=== PATIENT | female | born 1980 | race Caucasian/White ===

== ENCOUNTER 2016-06-19 07:37 | Emergency (ER) | payer OTHER ==
[2016-06-19 07:42] VITALS: BP 126/75; PULSE 82; TEMP 98.5; BMI 23.6
--- NOTE | 2016-06-19 08:14 | PDOC ---
History of Present Illness - General Chief Complaint: Rash Stated Complaint: 9WKS/ALLERGIC REACTION Time Seen by Provider: 06/19/16 08:13 Past History - Past Medical History Allergies/Adverse Reactions: Allergies Allergy/AdvReac Type Severity Reaction Status Date / Time No Known Allergies Allergy Verified 06/19/16 07:40 Home Medications: Ambulatory Orders Cephalexin [Keflex] 500 mg PO BID #20 capsule 06/19/16 Ranitidine HCl [Zantac] 150 mg PO BID #8 tablet 06/19/16 - Psycho/Social/Smoking Cessation Hx Anxiety: No Suicidal Ideation: No Smoking History: Never smoked Have you smoked in the past 12 months: No Information on smoking cessation initiated: No Hx Alcohol Use: No Drug/Substance Use Hx: No Substance Use Type: None *Physical Exam - Vital Signs Last Vital Signs Temp Pulse Resp BP Pulse Ox 98.5 F 82 18 126/75 100 06/19/16 07:40 06/19/16 07:40 06/19/16 07:40 06/19/16 07:40 06/19/16 07:40 ED Treatment Course - LABORATORY CBC & Chemistry Diagram: 06/19/16 09:30 06/19/16 09:40 *DC/Admit/Observation/Transfer Diagnosis at time of Disposition: Rash and nonspecific skin eruption Qualifiers: Weeks of gestation: less than 8 weeks Qualified Code(s): Z3A.01 - Less than 8 weeks gestation of - Discharge Dispostion Disposition: HOME Condition at time of disposition: Stable - Prescriptions Prescriptions: Cephalexin [Keflex] 500 mg PO BID #20 capsule Ranitidine HCl [Zantac] 150 mg PO BID #8 tablet - Referrals Referrals: Candi Shin MD [Staff Physician] - Hitesh Hernandez [Primary Care Provider] - - Patient Instructions Printed Discharge Instructions: DI for Rash Additional Instructions: Please take medications as prescribed and follow-up with dermatology within the next 2 days. Please keep your appointment with your corporate travel expert on Wednesday. If you experience any fever, increased vomiting, diarrhea, chills, or worsening of the rash, or any new or concerning symptoms, please return to the ER. - Post Discharge Activity Work/School Note: Back to Work - Attestations Physician Attestion: 06/19/16 08:14 I, Dr. Shane Santoro, attest that this document has been prepared under my direction and personally reviewed by me in its entirety. I further attest, that it accurately reflects all work, treatment, procedures and medical decision -making performed by me.
[2016-06-19 08:25] LABS: URINE APPEARANCE CLOUDY; URINE BILIRUBIN NEGATIVE (NEGATIVE); URINE COLOR AMBER; URINE GLUCOSE (UA) NEGATIVE (NEGATIVE); URINE KETONE NEGATIVE (NEGATIVE); URINE NITRITE NEGATIVE (NEGATIVE); URINE UROBILINOGEN NEGATIVE E.U./dl (0.2-1.0)
[2016-06-19 08:43] LABS: URINE BLOOD 2+ (NEGATIVE); URINE LEUK ESTERASE 3+ (NEGATIVE); URINE PROTEIN 2+ (NEGATIVE)
[2016-06-19 08:49] LABS: URINE MUCUS MANY; URINE RBC 111 /hpf (0-3); URINE WBC 1037 /hpf (3-5)
[2016-06-19] MEDS ORDERED: CEPHALEXIN MONOHYDRATE 500 MG CAPSULE (UD) PO ONE (09:16)
[2016-06-19] MEDS ORDERED: RANITIDINE HCL 150 MG TABLET (FP) PO ONE (09:17)
[2016-06-19] MEDS ORDERED: SODIUM CHLORIDE 0.9% 1000 ML INFUS.BAG IV ONE (09:19)
[2016-06-19] MEDS ORDERED: CEPHALEXIN MONOHYDRATE 250 MG CAPSULE (FP) ONE (09:28)
[2016-06-19] MEDS ORDERED: RANITIDINE HCL 150 MG TABLET (FP) ONE (09:28)
--- NOTE | 2016-06-19 09:42 | PDOC ---
History of Present Illness - General Chief Complaint: Rash Stated Complaint: 9WKS/ALLERGIC REACTION Time Seen by Provider: 06/19/16 08:13 - History of Present Illness Initial Comments: 06/19/16 09:40 CHIEF COMPLAINT: rash HISTORY OF PRESENT ILLNESS: 36 yo F (LMP 04/27/16) presents to ED with generalized painful rash to body that started yesterday, accompanied by one episode of vomiting this morning. She also complains of burning and discomfort with urination. No recent travel or sick contacts. PAST MEDICAL HISTORY: Denies past medical history FAMILY HISTORY: Denies SOCIAL HISTORY: Denies tobacco, alcohol, illicit drug use. SURGICAL HISTORY: Denies ALLERGIES: No known drug allergies REVIEW OF SYSTEMS General/Constitutional: Denies fever or chills. Denies weakness, weight change. HEENT: Denies change in vision. Denies ear pain or discharge. Denies sore throat. Cardiovascular: Denies chest pain or shortness of breath. Respiratory: Denies cough, wheezing, or hemoptysis. Gastrointestinal: Denies nausea, vomiting, diarrhea or constipation. Denies rectal bleeding. Genitourinary: Dysuria, denies blood in urine. Musculoskeletal: Denies joint or muscle swelling or pain. Denies neck or back pain. Skin: Painful rash. Denies rash or easy bruising. PHYSICAL EXAM General Appearance: Well-appearing, appropriately dressed. No apparent distress , no intoxication. HEENT: EOMI, PERRLA, normal ENT inspection, normal voice, TMs normal, pharynx normal. No conjunctival pallor. No photophobia, scleral icterus. Respiratory/Chest: Lungs CTAB. Cardiovascular: RRR. S1, S2. Integumentary: Generalized painful macular erythematous rash to face, torso, b/ l groin, b/l UE and LE. Appropriate color, dry, warm. Neurologic: private duty lpn II-XII intact. Fully oriented, alert. Appropriate mood/affect. Motor strength 5/5. No appreciable EOM palsy, facial droop or sensory deficit. Past History - Past Medical History Allergies/Adverse Reactions: Allergies Allergy/AdvReac Type Severity Reaction Status Date / Time No Known Allergies Allergy Verified 06/19/16 07:40 Home Medications: Ambulatory Orders Cephalexin [Keflex] 500 mg PO BID #20 capsule 06/19/16 Ranitidine HCl [Zantac] 150 mg PO BID #8 tablet 06/19/16 - Psycho/Social/Smoking Cessation Hx Anxiety: No Suicidal Ideation: No Smoking History: Never smoked Have you smoked in the past 12 months: No Information on smoking cessation initiated: No Hx Alcohol Use: No Drug/Substance Use Hx: No Substance Use Type: None *Physical Exam - Vital Signs Last Vital Signs Temp Pulse Resp BP Pulse Ox 98.5 F 82 18 126/75 100 06/19/16 07:40 06/19/16 07:40 06/19/16 07:40 06/19/16 07:40 06/19/16 07:40 ED Treatment Course - LABORATORY CBC & Chemistry Diagram: 06/19/16 09:30 06/19/16 09:40 - ADDITIONAL ORDERS Additional order review: Laboratory Results 06/19/16 08:05 Urine Color Kaitlyn Urine Appearance Cloudy Urine pH 5.0 Ur Specific [place] 1.021 Urine Protein 2+ H Urine Glucose (UA) Negative Urine Ketones Negative Urine Blood 2+ H Urine Nitrite Negative Urine Bilirubin Negative Urine Urobilinogen Negative Ur Leukocyte Esterase 3+ H Urine RBC 111 Urine WBC 1037 Ur Epithelial Cells Moderate Urine Mucus Many Urine HCG, Qual Positive - Medications Given in the ED: ED Medications Discontinued Medications Generic Name Dose Route Start Last Admin Trade Name Freq PRN Reason Stop Dose Admin Cephalexin HCl 500 mg 06/19/16 09:16 06/19/16 09:40 Keflex - PO 06/19/16 09:17 500 mg ONCE ONE Administration Ranitidine HCl 300 mg 06/19/16 09:17 06/19/16 09:40 Zantac - PO 06/19/16 09:18 300 mg ONCE ONE Administration Sodium Chloride 1,000 ml 06/19/16 09:19 06/19/16 09:40 Normal Saline - IV 06/19/16 09:20 1,000 ml ONCE ONE Administration Medical Decision Making - Medical Decision Making 06/19/16 10:44 36 yo F (LMP 04/27/16) presents to ED with generalized painful rash to body that started yesterday, accompanied by one episode of vomiting this morning and dysuria. -CBC, CMP -UA, UCx, Upreg Labs: UA: WBC 1000+, +blood otherwise unremarkable -1L NS -Zantac -Keflex Advised patient to take medication as prescribed and follow up with ranch cook within the next 2 days and to keep appointment with OB for this following Wednesday. Advised patient of signs and symptoms for return to ER; patient verbalized understanding and agrees to plan. *DC/Admit/Observation/Transfer Diagnosis at time of Disposition: Rash and nonspecific skin eruption Qualifiers: Weeks of gestation: less than 8 weeks Qualified Code(s): Z3A.01 - Less than 8 weeks gestation of - Discharge Dispostion Disposition: HOME Condition at time of disposition: Stable Admit: No - Prescriptions Prescriptions: Cephalexin [Keflex] 500 mg PO BID #20 capsule Ranitidine HCl [Zantac] 150 mg PO BID #8 tablet - Referrals Referrals: Hitesh Hernandez [Primary Care Provider] - Candi Shin MD [Staff Physician] - - Patient Instructions Printed Discharge Instructions: DI for Rash Additional Instructions: Please take medications as prescribed and follow-up with dermatology within the next 2 days. Please keep your appointment with your synthetic soil blocks pulper on Wednesday. If you experience any fever, increased vomiting, diarrhea, chills, or worsening of the rash, or any new or concerning symptoms, please return to the ER. - Post Discharge Activity Work/School Note: Back to Work
[2016-06-19 10:17] LABS: BASOPHIL 0.4 % (0-2.0); EOSINOPHIL 0.1 % (0-4.5); MCH 29.3 pg (25.7-33.7); MCHC 32.7 g/dl (32.0-36.0); MEAN CELL VOLUME 89.6 fl (80-96); MEAN PLT VOLUME 9.4 fl (7.5-11.1); NEUTROPHILS 88.4 % (42.8-82.8); PLATELET COUNT 238 K/MM3 (134-434); RDW 13.4 % (11.6-15.6); WHITE BLOOD COUNT 11.8 K/mm3 (4.0-10.0)
[2016-06-19 10:29] LABS: ALBUMIN 3.8 g/dl (3.4-5.0); ALK PHOS 66 U/L (45-117); ANION GAP 10 (8-16); BILIRUBIN,TOTAL 0.4 mg/dL (0.2-1.0); CALCIUM 8.5 mg/dL (8.5-10.1); CO2 24 mmol/L (21-32); CREATININE 0.6 mg/dL (0.55-1.02); GLUCOSE,RANDOM 91 mg/dL (74-106); SGOT/AST 15 U/L (15-37); SGPT/ALT 16 U/L (12-78); TOT PROT 7.5 g/dl (6.4-8.2)
== END 2016-06-19 11:06 | disposition home or self-care (01) ==
LOC: JER 07:37
DX: O26.891 Other specified pregnancy related conditions, first trimester (principal); R21 Rash and other nonspecific skin eruption; Z3A.09 9 weeks gestation of pregnancy
CPT/HCPCS: 36415; 80053; 81003; 81015; 84703; 85025; 85651; 86850; 86900; 86901; 99282-25

== ENCOUNTER 2019-09-09 18:44 | Emergency (ER) | payer OTHER ==
--- NOTE | 2019-09-09 18:48 | PDOC ---
Rapid Medical Evaluation Time Seen by Provider: 09/09/19 18:47 Medical Evaluation: Allergies Allergy/AdvReac Type Severity Reaction Status Date / Time peanut Allergy Severe Difficulty Verified 11/12/16 20:39 Breathing 09/09/19 18:47 I have performed a brief in-person evaluation of this patient. The patient presents with a chief complaint of:and pain w/ n/v/d after po intake x 1 week. No pmhx Pertinent physical exam findings:well chandler and stable I have ordered the following:labs/ua The patient will proceed to the ED for further evaluation. Discharge Disposition - Diagnosis Abdominal pain Qualifiers: Abdominal location: unspecified location Qualified Code(s): R10.9 - Unspecified abdominal pain - Referrals - Patient Instructions - Post Discharge Activity
[2019-09-09 18:50] VITALS: TEMP 98.3; BMI 31.1
[2019-09-09] MEDS ORDERED: ACETAMINOPHEN 1000 MG/100 ML VIAL (NON FORMULARY) IVPB ONE (20:33)
[2019-09-09] MEDS ORDERED: FAMOTIDINE 20 MG/50 ML IVPB 20 MG/50 ML MG IVPB ONE ×2 (20:33→21:14)
[2019-09-09] MEDS ORDERED: LACTATED RINGERS SOLUTION 1000 ML INFUS.BAG IV ONE (20:34)
[2019-09-09] MEDS ORDERED: ONDANSETRON 4 MG/2 ML VIAL IVPUSH ONE (20:36)
--- NOTE | 2019-09-09 20:41 | PDOC ---
History of Present Illness - General Chief Complaint: Pain, Acute Stated Complaint: DIARREAH, VOMITTING, WEAKNESS Time Seen by Provider: 09/09/19 18:47 - History of Present Illness Initial Comments: 09/09/19 20:21 39 F with hx of alcohol use presented to the ED with abdominal pain. Her boy friend was the primary grey goods examiner. According to her, she has been drinking over the last week. 4 beers and a couple shots a day. Her abdominal pain and headaches started around last week, but it got so bad, she came to the ED. In addition, she had nausea, and vomiting NBNB, diarrhea , chill, epigastric pain. She denies fever, chest pain, unilat leg swelling/pain, dysuria PMHX: as in HPI PSHX: none Meds: none Allergies: none Tob: neg Etoh: heavy Rec drugs: neg PCP:Jose L Kaba MD Termite Treater: boyfriend ROS GENERAL/CONSTITUTIONAL: No fever. chills. No weakness. HEAD, EYES, EARS, NOSE AND THROAT: No change in vision. No ear pain or discharge. No sore throat. CARDIOVASCULAR: No chest pain or shortness of breath RESPIRATORY: No cough, wheezing, or hemoptysis. GASTROINTESTINAL: nausea, vomiting, diarrhea . No constipation. GENITOURINARY: No dysuria, frequency, or change in urination. MUSCULOSKELETAL: No joint or muscle swelling or pain. No neck or back pain. SKIN: No rash NEUROLOGIC: headache. no vertigo loss of consciousness, or change in strength/sensation. ENDOCRINE: No increased thirst. No abnormal weight change HEMATOLOGIC/LYMPHATIC: No anemia, easy bleeding, or history of blood clots. ALLERGIC/IMMUNOLOGIC: No hives or skin allergy. PE GENERAL: Awake, alert, and fully oriented, in no acute distress HEAD: No signs of trauma, normocephalic, atraumatic EYES: PERRLA, EOMI, sclera anicteric, conjunctiva clear ENT: Auricles normal inspection, hearing grossly normal, nares patent, oropharynx clear without exudates. Moist mucosa NECK: Normal ROM, supple, no lymphadenopathy, JVD, or masses LUNGS: No distress, speaks full sentences, clear to auscultation bilaterally HEART: Regular rate and rhythm, normal S1 and S2, no murmurs, rubs or gallops, peripheral pulses normal and equal bilaterally. ABDOMEN: Soft, nontender, normoactive bowel sounds. No guarding, no rebound. No masses. diffuse abdominal pain EXTREMITIES : Normal inspection, Normal range of motion, no edema. No clubbing or cyanosis. NEUROLOGICAL: Cranial nerves II through XII grossly intact. Normal speech, normal gait, no focal sensorimotor deficits SKIN: Warm, Dry, normal turgor, no rashes or lesions noted Past History - Medical History Allergies/Adverse Reactions: Allergies Allergy/AdvReac Type Severity Reaction Status Date / Time peanut Allergy Severe Difficulty Verified 09/09/19 18:48 Breathing Home Medications: Ambulatory Orders NK [No Known Home Medication] 09/09/19 COPD: No - Psycho-Social/Smoking History Smoking History: Never smoked Have you smoked in the past 12 months: No - Substance Abuse Hx (Audit-C & DAST Scrn) How often the patient has a drink containing alcohol: Never Score: In Men: 4 or > Positive; In Women: 3 or > Positive: 0 Screen Result (Pos requires Nsg. Audit-10AR): Negative In the last yr the pt used illegal drug/Rx for NonMed reason: No Score: Yes response is considered Positive: 0 Screen Result (Positive result requires Nsg. DAST-10): Negative *Physical Exam - Vital Signs Last Vital Signs Temp Pulse Resp BP Pulse Ox 98.3 F 99 H 18 155/89 98 09/09/19 18:48 09/09/19 18:48 09/09/19 18:48 09/09/19 18:48 09/09/19 18:48 ED Treatment Course - LABORATORY CBC & Chemistry Diagram: 09/09/19 20:30 09/09/19 20:17 Medical Decision Making - Medical Decision Making 09/09/19 20:51 Ms Soriano 39 F with hx of alcohol abuse came here for abdominal pain,N/V/D. Based on H&P, ddx: most likely gastritist, pancreatitis, esophagitist Lab: CBC, CMP, lipase Imaging: none Med: IV fluid, IV tylenol for headache, fantomidin, ondonsetron for nausea. Will reassess, most likely will get d/c home. 09/09/19 20:53 09/09/19 22:09 Patient is reassessed. She felt better. PO challenge is passed Lab result came back mostly normal . CBC is normal , CMP showed elevated AST, ALT , liver enzymes which correlated to the alcohol use today. Lipase is normal. Awaiting for troponin EKG was done which revealed normal sinus rhythm, anterior flipped T waves on V1- 4, no previous EKG was done to compare with. Because of this, Troponin was ordered , which revealed negative result. Patient was offered to go to [facility] for detox, yet, she refused. Patient is reassessed and felt better. She is discharged home and encourage to isabella minor up with PCP. Discharge - Discharge Information Problems reviewed: Yes Clinical Impression/Diagnosis: Gastritis Abdominal pain Qualifiers: Abdominal location: unspecified location Qualified Code(s): R10.9 - Unspecified abdominal pain Condition: Good Disposition: HOME - Admission No - Follow up/Referral Referrals: Jose L Kaba [Primary Care Provider] - - Patient Discharge Instructions Additional Instructions: You came to the hospital for abdominal pain, nausea and vomiting. We did some basic lab works, which revealed no concerning problems. We also did an EKG, which was mostly normal. We then did a cardiac enzyme called troponin, which came out to be normal. We gave you medication for the headache, and nausea. We also gave you a litter of fluid via IV. We offered you detox program, but you refused. After medications, you stated you felt better. You are discharged home with follow up with your Primary care doctor. If you feel worsening symptoms, please come back to the Emergent room. - Post Discharge Activity
[2019-09-09 20:49] LABS: BASO % 1.2 % (0-2.0); EOS % 0.6 % (0-4.5); HEMOGLOBIN 13.7 GM/dL (10.7-15.3); MCH 31.1 pg (25.7-33.7); MCHC 34.1 g/dl (32.0-36.0); MEAN CELL VOLUME 90.9 fl (80-96); MEAN PLT VOLUME 8.8 fl (7.5-11.1); MONO % 8.3 % (3.8-10.2); NEUT % 68.9 % (42.8-82.8); PLATELET COUNT 253 K/MM3 (134-434); RDW 12.8 % (11.6-15.6)
[2019-09-09] MEDS ORDERED: ACETAMINOPHEN INJECTION 100 ML IVPB ONE (21:13)
--- NOTE | 2019-09-09 21:18 | PDOC ---
Documentation entered by Briseida Santiago SCRIBE, acting as scribe for Jud Porter MD. Jud Porter MD: This documentation has been prepared by the suziibePamela Sydney, SCRIBE, under my direction and personally reviewed by me in its entirety. I confirm that the documentation accurately reflects all work, treatment, procedures, and medical decision making performed by me. Attending Attestation - Resident Resident Name: TomerReji - ED Attending Attestation I have performed the following: I have examined & evaluated the patient, The case was reviewed & discussed with the resident, I agree w/resident's findings & plan, Exceptions are as noted - HPI HPI: 09/09/19 20:55 Patient is a 39 year old female with a significant past medical history of EtOH abuse (5-8 drinks/day since April) who presents to the ED with two days of progressively worsening epigastric pain with assoicated headache, nausea, vomiting, and diarrhea. Patients boyfriend is the main lines tender. As per patient, she had been drinking about four beers and a few shots per day over the past week. Patient endorses abdominal pain and headaches started about the same time, but today presents with worsening symptoms, prompting her arrival to the ED. Denies any urinary changes. - Physicial Exam PE: 09/09/19 21:06 GENERAL: Well-appearing, well-nourished. No apparent distress. HEENT: Normocephalic, atraumatic. PERRL, EOM intact. CARDIOVASCULAR: Normal S1, S2. Regular rate and rhythm. PULMONARY: Clear to auscultation bilaterally. ABDOMEN: Soft, obese; enlarged liver non-distended, non-tender. EXTREMITIES: Normal ROM in all four extremities. No gross deformities. SKIN: Warm, dry. No rash NEUROLOGICAL: No focal neurological deficits. 09/09/19 22:19 Pt is with her baby daddamon who is translating and he states that she doesn't want detox before she could answer. Pt is aware that she has alcoholic hepatitis. Pt has a 2.5 yo son at home that she cares for. Pt doesn't work - Medical Decision Making 09/09/19 22:14 cardiac enzymes and all labs are normal. 09/09/19 23:23 Pt is refusing Detox; she wants to go home. Her friend will take her home. Pt understands that she has liver damage from her alcohol use and she is considering quitting. Discharge - Discharge Information Problems reviewed: Yes Clinical Impression/Diagnosis: Gastritis Abdominal pain Qualifiers: Abdominal location: unspecified location Qualified Code(s): R10.9 - Unspecified abdominal pain Condition: Good Disposition: HOME - Follow up/Referral Referrals: Jose L Kaba [Primary Care Provider] - - Patient Discharge Instructions Additional Instructions: You came to the hospital for abdominal pain, nausea and vomiting. We did some basic lab works, which revealed no concerning problems. We also did an EKG, which was mostly normal. We then did a cardiac enzyme called troponin, which came out to be normal. We gave you medication for the headache, and nausea. We also gave you a litter of fluid via IV. We offered you detox program, but you refused. After medications, you stated you felt better. You are discharged home with follow up with your Primary care doctor. If you feel worsening symptoms, please come back to the Emergent room. - Post Discharge Activity
[2019-09-09 21:21] LABS: ALBUMIN 3.6 g/dl (3.4-5.0); ALK PHOS 126 U/L (45-117); ANION GAP 12 MMOL/L (8-16); BILIRUBIN,TOTAL 0.3 mg/dL (0.2-1); CALCIUM 8.7 mg/dL (8.5-10.1); CHLORIDE 105 mmol/L (98-107); CO2 20 mmol/L (21-32); CREATININE 0.7 mg/dL (0.55-1.3); GLUCOSE,RANDOM 101 mg/dL (74-106); LIPASE 130 U/L (73-393); POTASSIUM 4.1 mmol/L (3.5-5.1); SGOT/AST 98 U/L (15-37); SGPT/ALT 103 U/L (13-61); SODIUM 137 mmol/L (136-145); TOT PROT 8.1 g/dl (6.4-8.2)
[2019-09-09 21:32] LABS: PH,URINE 6.5 (5.0-8.0); URINE APPEARANCE CLEAR; URINE BILIRUBIN NEGATIVE (NEGATIVE); URINE COLOR YELLOW; URINE GLUCOSE (UA) NEGATIVE (NEGATIVE); URINE KETONE NEGATIVE (NEGATIVE); URINE LEUK ESTERASE NEGATIVE (NEGATIVE); URINE NITRITE NEGATIVE (NEGATIVE); URINE PROTEIN NEGATIVE (NEGATIVE); URINE UROBILINOGEN 0.2 mg/dL (0.2-1.0)
[2019-09-09 21:34] LABS: HCG,QUALITATIVE URINE Negative
[2019-09-09 23:03] VITALS: BP 140/83; PULSE 88
--- NOTE | 2019-09-11 09:19 | EKG ---
Test Reason : Blood Pressure : / mmHG Vent. Rate : 076 BPM Atrial Rate : 076 BPM P-R Int : 148 ms QRS Dur : 086 ms QT Int : 434 ms P-R-T Axes : 025 090 014 degrees QTc Int : 488 ms NORMAL SINUS RHYTHM RIGHTWARD AXIS T WAVE ABNORMALITY, CONSIDER ANTERIOR ISCHEMIA PROLONGED QT ABNORMAL ECG NO PREVIOUS ECGS AVAILABLE Confirmed by Milena Reynoso ([id number]) on 09/11/2019 9:18:54 AM Referred By: Confirmed By:Milena Reynoso
== END 2019-09-09 22:47 | disposition home or self-care (01) ==
LOC: JER 18:44
PROC: 3E0233Z Introduction of Anti-inflammatory into Muscle, Percutaneous Approach (ICD-10-PCS; principal; 2019-09-09)
PROC: 3E033GC Introduction of Other Therapeutic Substance into Peripheral Vein, Percutaneous Approach (ICD-10-PCS; 2019-09-09)
DX: K52.9 Noninfective gastroenteritis and colitis, unspecified (principal)
CPT/HCPCS: 36415; 80053; 81003; 82550; 83690; 84484; 84703; 85025; 93005; 93010; 99285-25; J0131

== ENCOUNTER 2022-09-14 18:51 | Emergency (ER) | payer OTHER ==
[2022-09-14 19:06] VITALS: TEMP 98.6; BMI 27.9
[2022-09-14] MEDS ORDERED: ACETAMINOPHEN 325 MG TABLET (FP) PO ONE (22:08)
[2022-09-14] MEDS ORDERED: ACETAMINOPHEN 325 MG TABLET (FP) ONE (22:31)
[2022-09-14 22:36] LABS: BASO % 1.2 % (0-2.0); EOS % 1.2 % (0-4.5); HEMATOCRIT 40.8 % (32.4-45.2); HEMOGLOBIN 13.8 GM/dL (10.7-15.3); LYMPH % 25.2 % (8-40); MCH 31.2 pg (25.7-33.7); MCHC 33.9 g/dl (32.0-36.0); MEAN PLT VOLUME 8.4 fl (7.5-11.1); MONO % 9.9 % (3.8-10.2); NEUT % 62.5 % (42.8-82.8); PLATELET COUNT 263 10^3/uL (134-434); RBC 4.44 M/mm3 (3.60-5.2); RDW 14.4 % (11.6-15.6); WHITE BLOOD COUNT 6.9 K/mm3 (4.0-10.0)
[2022-09-14 22:47] LABS: POTASSIUM 3.5 mmol/L (3.5-5.1)
[2022-09-14 22:49] LABS: ALBUMIN 3.4 g/dl (3.4-5.0); BLOOD UREA NITROGEN 5.4 mg/dL (7-18); CALCIUM 9.1 mg/dL (8.5-10.1); MAGNESIUM 2.2 mg/dL (1.8-2.4)
[2022-09-14 22:52] LABS: CREATININE 0.5 mg/dL (0.55-1.3)
[2022-09-14 22:54] LABS: BILIRUBIN,TOTAL 0.4 mg/dL (0.2-1)
[2022-09-14 22:55] LABS: INR 1.07 (0.83-1.09); PROTHROMBIN TIME (PATIENT) 12.4 SEC (9.7-13.0)
[2022-09-14 22:58] LABS: ACTIVATED PTT 29.7 SECONDS (25.2-36.5)
[2022-09-14 23:09] VITALS: BP 149/95; PULSE 58; RESP 16
[2022-09-14] MEDS ORDERED: KETOROLAC TROMETHAMINE 30 MG/1 ML VIAL IVPUSH ONE (23:30)
[2022-09-15] MEDS ORDERED: KETOROLAC TROMETHAMINE 15 MG/ML VIAL ONE (01:30)
== END 2022-09-15 02:02 | disposition home or self-care (01) ==
LOC: JER 18:51
PROC: 3E0333Z Introduction of Anti-inflammatory into Peripheral Vein, Percutaneous Approach (ICD-10-PCS; principal; 2022-09-15)
DX: R07.89 Other chest pain (principal)
CPT/HCPCS: 36415; 71046-TC-FY; 80053; 83690; 83735; 84484; 84703; 85025; 85610; 85730; 93005; 93010; 99285-25

== ENCOUNTER 2023-07-28 09:32 | Emergency (ER) | payer OTHER ==
[2023-07-28 09:48] VITALS: BMI 22.2
[2023-07-28] MEDS ORDERED: FAMOTIDINE 20 MG/50 ML IVPB 20 MG/50 ML MG IVPB ONE (10:13)
[2023-07-28] MEDS ORDERED: MAG HYDROX/AL HYDROX/SIMETH 30 ML UNIT-DOSE CUP ONE (10:13)
[2023-07-28] MEDS ORDERED: ONDANSETRON 4 MG/2 ML VIAL ONE (10:13)
[2023-07-28] MEDS ORDERED: ACETAMINOPHEN INJECTION 100 ML IVPB ONE (10:13)
[2023-07-28] MEDS: ACETAMINOPHEN 1000 MG/100 ML BAG IVPB ONE (10:27)
[2023-07-28] MEDS: SODIUM CHLORIDE 0.9% 500 ML INFUS.BAG IV ONE (10:27)
[2023-07-28] MEDS: FAMOTIDINE 20 MG/50 ML IVPB 20 MG/50 ML MG IVPB ONE (10:27)
[2023-07-28] MEDS: MAG HYDROX/AL HYDROX/SIMETH 30 ML UNIT-DOSE CUP PO ONE (10:27)
[2023-07-28] MEDS: ONDANSETRON 4 MG/2 ML VIAL IVPUSH ONE (10:27)
[2023-07-28 10:29] LABS: BASO % 0.7 % (0-2.0); EOS % 0.2 % (0-4.5); HEMATOCRIT 39.3 % (32.4-45.2); HEMOGLOBIN 13.7 GM/dL (10.7-15.3); LYMPH % 17.2 % (8-40); MCH 30.4 pg (25.7-33.7); MCHC 34.7 g/dl (32.0-36.0); MEAN CELL VOLUME 87.6 fl (80-96); MEAN PLT VOLUME 9.1 fl (7.5-11.1); MONO % 7.2 % (3.8-10.2); NEUT % 74.7 % (42.8-82.8); PLATELET COUNT 143 10^3/uL (134-434); RBC 4.49 M/mm3 (3.60-5.2); RDW 14.1 % (11.6-15.6); WHITE BLOOD COUNT 5.7 K/mm3 (4.0-10.0)
[2023-07-28 10:56] LABS: POTASSIUM 3.2 mmol/L (3.5-5.1)
[2023-07-28 10:58] LABS: CALCIUM 10.1 mg/dL (8.5-10.1)
[2023-07-28 10:59] LABS: ALBUMIN 4.4 g/dl (3.4-5.0); BLOOD UREA NITROGEN 12.1 mg/dL (7-18)
[2023-07-28 11:02] LABS: CREATININE 0.7 mg/dL (0.55-1.3)
[2023-07-28 11:03] LABS: BILIRUBIN,TOTAL 1.4 mg/dL (0.2-1); TOT PROT 8.9 g/dl (6.4-8.2)
[2023-07-28 11:06] LABS: INR 1.04 (0.83-1.09); PROTHROMBIN TIME (PATIENT) 11.7 SEC (9.7-13.0)
[2023-07-28 11:09] LABS: ACTIVATED PTT 28.5 SECONDS (25.2-36.5)
[2023-07-28] MEDS ORDERED: POTASSIUM CHLORIDE ORAL LIQUID 20 MEQ/15 ML ONE (11:15)
[2023-07-28] MEDS: POTASSIUM CHLORIDE ORAL LIQUID 20 MEQ/15 ML PO ONE (11:19)
[2023-07-28 13:03] LABS: EPI CELLS >36 /uL (0-25.1); HYALINE CASTS 4 /uL (0-3.1); URINE APPEARANCE CLOUDY; URINE BACTERIA 1032 /uL (0-1359); URINE BILIRUBIN NEGATIVE (NEGATIVE); URINE COLOR YELLOW; URINE GLUCOSE (UA) NEGATIVE (NEGATIVE); URINE KETONE 2+ (NEGATIVE); URINE LEUK ESTERASE TRACE (NEGATIVE); URINE NITRITE NEGATIVE (NEGATIVE); URINE PROTEIN 1+ (NEGATIVE); URINE WBC 79 /uL (0-25.8)
[2023-07-28] MEDS ORDERED: CEFTRIAXONE 1 GM/50 ML BAG ONE (13:32)
[2023-07-28] MEDS: CEFTRIAXONE 1 GM in DEXTROSE 5%-WATER - 100 ML IVPB ONE (13:36)
[2023-07-28 13:38] LABS: URINE RBC 69 /uL (0-23.9)
[2023-07-28 15:14] VITALS: BP 123/70; PULSE 80; RESP 18; TEMP 98.5
== END 2023-07-28 16:26 | disposition home or self-care (01) ==
LOC: JER 09:32
PROC: 3E03329 Introduction of Other Anti-infective into Peripheral Vein, Percutaneous Approach (ICD-10-PCS; principal; 2023-07-28)
PROC: 3E033GC Introduction of Other Therapeutic Substance into Peripheral Vein, Percutaneous Approach (ICD-10-PCS; 2023-07-28)
PROC: 3E033NZ Introduction of Analgesics, Hypnotics, Sedatives into Peripheral Vein, Percutaneous Approach (ICD-10-PCS; 2023-07-28)
PROC: 3E033GC Introduction of Other Therapeutic Substance into Peripheral Vein, Percutaneous Approach (ICD-10-PCS; 2023-07-28)
DX: E87.6 Hypokalemia (principal); R74.01 Elevation of levels of liver transaminase levels; K76.0 Fatty (change of) liver, not elsewhere classified; N39.0 Urinary tract infection, site not specified; R53.1 Weakness; R11.10 Vomiting, unspecified; R07.89 Other chest pain; R10.9 Unspecified abdominal pain; R50.9 Fever, unspecified; R05.9 Cough, unspecified; R09.81 Nasal congestion
CPT/HCPCS: 36415; 74176-TC; 76705-TC; 76775-TC; 80053; 81003; 83690; 84484; 84703; 85025; 85610; 85730; 87086; 87186; 93005; 93010; 99285-25; J0131